=== PATIENT | female | born 1975 | race Caucasian/White ===

== ENCOUNTER 2020-09-01 23:22 | Emergency (ER) | payer MEDICAID ==
[~2020-09-01] VITALS: Ht 160 cm; Wt 65.8 kg
[2020-09-01 23:23] VITALS: BP_SYST 121
--- NOTE | 2020-09-01 23:23 | NUR ---
Placed in room 3. Placed on proposal development manager, blood pressure machine and pulse oximeter. To gown for exam. Side rails up.
--- NOTE | 2020-09-01 23:25 | NUR ---
ER Dr. Deras at bedside examining patient.
[2020-09-01] MEDS ORDERED: KETOROLAC TROMETHAMINE 60 MG/2 ML VIAL IM ONE (23:30)
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
--- NOTE | 2020-09-01 23:56 | NUR ---
radiology at bedside for xray.
[2020-09-02 01:36] VITALS: BP_SYST 109
--- NOTE | 2020-09-02 01:36 | NUR ---
Patient given written and verbal discharge instructions and verbalizes understanding. ER MD discussed with patient the results and treatment provided. Patient in stable condition. ID arm band removed. Rx of Naprosyn given. Patient educated on pain management and to follow up with PMD. Pain Scale 2. Pt was medicated here in ED and prescription sent home with patient. Opportunity for questions provided and answered. Medication side effect fact sheet provided.
== END 2020-09-02 01:36 | disposition home or self-care (01) ==
LOC: SED 23:22
DX: S20.213A Contusion of bilateral front wall of thorax, initial encounter (principal); W22.8XXA Striking against or struck by other objects, initial encounter; Y93.89 Activity, other specified; Y92.89 Other specified places as the place of occurrence of the external cause; Y99.8 Other external cause status
CPT/HCPCS: 71045; 93005; 96372; 99283; J1885